=== PATIENT | male | born 2000 | race Caucasian/White ===

== ENCOUNTER 2022-02-17 22:31 | Emergency (ER) | payer MEDICAID, SELFPAY ==
[2022-02-17 22:32] VITALS: BP 154/86; PULSE 107; RESP 15; TEMP 36.6; O2SAT 100; BMI 22.0
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
== END 2022-02-17 23:59 | disposition home or self-care (01) ==
PROVIDERS: Emergency Provider Emergency Medicine; Visit Provider Emergency Medicine
DX: S06.0X0A Concussion without loss of consciousness, initial encounter (principal); V43.02XA Car driver injured in collision with other type car in nontraffic accident, initial encounter; Y92.481 Parking lot as the place of occurrence of the external cause
CPT/HCPCS: 99282